=== PATIENT | male | born 1980 | race Caucasian/White ===

== ENCOUNTER 2022-02-21 12:13 | Emergency (ER) | payer BC ==
[~2022-02-21] VITALS: Ht 162.6 cm; Wt 83.5 kg
[2022-02-21] MEDS ORDERED: IV NS 0.9% 1,000 ML BAG IV ONE (13:30)
[2022-02-21] MEDS ORDERED: ACETAMINOPHEN ES 500 MG TABLET PO ONE (13:30)
[2022-02-21] MEDS ORDERED: ACETAMINOPHEN ES 500 MG TABLET ONE (13:32)
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
--- NOTE | 2022-02-21 13:47 | NUR ---
Patient does not wish to proceed with medical care recommended by Dr. Irwin. Patient given information related to possible complications, up to and including , which could occur as a result of leaving the hospital at this time. Patient verbalizes understanding of risks involved due to leaving against medical advice. Patient has signed AMA form.
[2022-02-21 13:48] VITALS: BP 135/71
== END 2022-02-21 13:48 | disposition left against medical advice (07) ==
LOC: ER 12:19
DX: S16.1XXA Strain of muscle, fascia and tendon at neck level, initial encounter (principal); S30.1XXA Contusion of abdominal wall, initial encounter; S50.812A Abrasion of left forearm, initial encounter; M79.10 Myalgia, unspecified site; I10 Essential (primary) hypertension; V49.49XA Driver injured in collision with other motor vehicles in traffic accident, initial encounter; Y93.89 Activity, other specified; Y92.413 State road as the place of occurrence of the external cause; Y99.8 Other external cause status
CPT/HCPCS: J7030